=== PATIENT | male | born 1950 | race Caucasian/White ===

== ENCOUNTER 2018-04-13 16:05 | Inpatient (IN) ==
[2018-04-13 16:11] VITALS: BMI 20.3
[2018-04-13] MEDS ORDERED: ASPIRIN PO ONE (17:39)
--- NOTE | 2018-04-13 17:44 | DR.SOBA ---
HPI - Time Seen Time seen: 17:41 - Primary Care Physician Primary Care Physician: MAHAMED HAJI - Complaints Chief Complaint Doctors Comments: Patient states he has been having chest pain, SOB and back pain for the past two weeks getting progressively worst. States he has been having problems breathing and has been using his 's oxygen at home when he felt that he needed it. He has been using an inhaler at home and states he has been having problems breathing. He smokes 1/2 pack cigarettes daily but denies alcohol usage. States he has been having chest pain but denies nausea, vomiting, dysuria or hematuria. Chief Complaint:: PT HAS BEEN SHORT OF BREATH AND HOT. HE STATED THAT THIS HAS BEEN GOING ON FOR 2 WEEKS. HAVING DISCOMFORT IN CHEST AND BACK. - Reviewed Nurses Notes Reviewed: Yes - Source History Provided: Patient - Mode of Arrival Mode of Arrival: Wheelchair - Timing Onset of Chief Complaint: 03/30/18 - Duration Duration: Weeks - Context Onset:: At Rest History of:: None Currently on:: Inhaled Bronchodilators Prehospital Care:: O2, Inhaled B2 - Modifying Factors Worsens:: Nothing Improves:: Nothing - Associated Signs and Symptoms Associated Signs and Symptoms: Wheeze, Cough, Chest Pain - If Chest Pain Quality: Sharp Location: Substernal - If Cough Cough: Nonproductive PMH - PMH Past Medical History: Yes Past Medical History: Anemia, COPD, CVA, Dyslipidemia, GERD, Hypertension, [place] Past Surgical History: Yes Surgical History: Angioplasty/Stents - Family History History of Family Medical Conditions: Yes Family Medical History: Cancer, Coronary Artery Disease - Social History Does patient currently use any type of tobacco product: Yes Have you used tobacco products in the last 12 months: Yes Type of Tobacco Use: Cigarettes Does any household member use tobacco: No Alcohol Use: Rarely Do you use any recreational Drugs:: No Lives With: Family Lives Where: Home - infectious screening In the last 2 months have you had wt loss of >10#?: NO Have you had fever, night sweats or hemotysis?: No Have you traveled outside the country in the last 6 months?: No Isolation: Standard ROS - Review of Systems Constitutional: No Symptoms Reported Eyes: No Symptoms Reported. negative: See HPI, Eye Pain, Blurred Vision, Tearing, Discharge, Photophobia, Diplopia, Other ENTM: No Symptoms Reported Respiratoy: No Symptoms Reported, Non-Productive Cough, Short of Breath, Wheezing Cardiovascular: No Symptoms Reported, Chest Pain Gastrointestinal/Abdominal: No Symptoms Reported. negative: See HPI, Abdominal Pain, Constipation, Diarrhea, Nausea, Vomiting, Food Intolerance, Other Genitourinary: No Symptoms Reported. negative: See HPI, Discharge, Dysuria, Frequency, Hematuria, Pain, Bleeding, Other Neurological: No Symptoms Reported Musculoskeletal: No Symptoms Reported. negative: See HPI, Back Pain, Gout, Joint Pain, Joint Swelling, Muscle Pain, Muscle Stiffness, Neck Pain, Right, Left, Neck, Chest wall, Rib(s), Back, Shoulder, Arm, Elbow, Forearm, Wrist, Hand , Pelvis, Hip, Leg, Knee, Ankle, Foot, Other Integumentary: No Symptoms Reported Hematologic/Lymphatic: No Symptoms Reported. negative: See HPI, Anemia, Blood Clots, Easy Bleeding, Easy Bruising, Swollen Glands, Lymphadenopathy, Other Endocrine: No Symptoms Reported Psychiatric: No Symptoms Reported. negative: See HPI, Anxiety, Depression, Hallucinations, Excessive crying, Suicidal, Other PE - General Limitations: No Limitations General Appearance: Alert, In No Apparent Distress, Anxious - Head Head Exam: Normal Inspection, Atraumatic, Normocephalic - Eyes Eye exam: Normal Appearance, PERRL, EOMI. negative: Scleral Icterus, Conjunctival Injection, Nystagmus, Miosis, Mydrasis, Periorbital Swelling, Periorbital Tenderness, Other - ENT ENT Exam: Normal Exam, Normal Oropharynx, Normal External Ear Exam, Mucous Membranes Moist, TM's Normal Bilaterally - Neck Neck Exam: Normal Inspection, Full ROM, Trachea Midline - Chest Chest Inspection: Normal Inspection, Symmetric Chest Wall Rise - Respiratory Respiratory Exam: Normal Lung Sounds Bilat, Prolonged Expiratory Phase Respiratory Exam: Bilateral Clear to Auscultation - Cardiovascular Cardiovascular Exam: Regular Rate, Normal Rhythm, Normal Heart Sounds - Abdominal Exam Abdominal Exam: Normal Inspection, Normal Bowel Sounds, Soft Abdominal Tenderness: negative: RUQ, RLQ, LUQ, LLQ, Epigastrium, Suprapubic, Diffuse, Mild, Moderate, Severe, Other - Extremities Extremities Exam: Normal Inspection, Full ROM, Normal Capillary Refill. negative: Tenderness, Edema, Joint Swelling, Calf Tenderness, Other - Back Back Exam: Normal Inspection, Full ROM. negative: Tenderness, (R) CVA Tenderness, (L) CVA Tenderness, Muscle Spasm, Paraspinal Tenderness, Vertebral Tenderness, Rashes, (R) Sciatic Notch Tenderness, (L) Sciatic Notch Tendern, (R ) Straight Leg Raise, (L) Straight Leg Raise, Other - Neurologic Neurological Exam: Alert, Oriented X3, CN II-XII Intact, Reflexes Normal. negative: Normal Gait (gait not tested) - Psychiatric Psychiatric Exam: Normal Affect, Normal Mood - Skin Skin Exam: Warm, Dry, Intact, Normal Color. negative: Rash, Cyanosis, Diaphoresis, Erythema, Pallor, Mottled, Other - Vital Signs Vitals: Temperature 98.0 F Pulse Rate [Apical] 100 Pulse Rate 107 Respiratory Rate 17 Blood Pressure [Left Arm] 168/80 Blood Pressure [Right Arm] 105/55 Blood Pressure 151/67 O2 Sat by Pulse Oximetry 98 ROR - Labs Reviewed Laboratory Results Reviewed?: Yes (All labs and x-ray results reviewed and discussed with patient) Result Diagrams: 04/13/18 17:57 04/13/18 17:57 - XRAY XRAY Interpreted by: Radiologist (CTA: COPD with bilateral pleural effusions, larger on right side. No evidence of pulmonary embolus or thoracic aortic aneurysm.) XRAY Findings: CXR: Interval developement of cardiomegaly and CHF with interstitial edema - EKG Rate: 81 Maxwell: LAD Rhythm: NSR Block: None Hypertrophy: LAE ST: Nonsp - Labs Reviewed Laboratory: WBC 6.3 X10^3/uL (3.6-10.0) 04/13/18 17:57 RBC 4.27 X10^6/uL (4.7-6.0) L 04/13/18 17:57 Hgb 14.0 g/dL (13.5-18.0) 04/13/18 17:57 Hct 39.4 % (42.0-54.0) L 04/13/18 17:57 MCV 92.2 fL (80.0-100.0) 04/13/18 17:57 MCH 32.7 pg (27.0-34.0) 04/13/18 17:57 MCHC 35.5 g/dL (33.0-35.0) H 04/13/18 17:57 RDW 14.7 % (11.6-16.5) 04/13/18 17:57 Plt Count 146 X10^3/uL (150.0-450.0) L 04/13/18 17:57 MPV 8.5 fL (7.4-11.0) 04/13/18 17:57 Neut % (Auto) 74.1 % (42.0-75.0) 04/13/18 17:57 Lymph % (Auto) 14.1 % (21.0-51.0) L 04/13/18 17:57 Granite % (Auto) 10.3 % (0.0-13.0) 04/13/18 17:57 Eos % (Auto) 0.4 % (0.9-2.9) L 04/13/18 17:57 Baso % (Auto) 1.1 % (0.2-1.0) H 04/13/18 17:57 Neut # (Auto) 4.7 x10^3/uL (2.2-4.8) 04/13/18 17:57 Lymph # (Auto) 0.9 X10^3/uL (1.3-2.9) L 04/13/18 17:57 Granite # (Auto) 0.6 x10^3/uL (0.3-0.8) 04/13/18 17:57 Eos # (Auto) 0.0 x10^3/uL (0.0-0.2) 04/13/18 17:57 Baso # (Auto) 0.1 X10^3/uL (0.0-0.1) 04/13/18 17:57 Absolute Nucleated RBC 0.0 /100WBC 04/13/18 17:57 INR Target Range - 04/13/18 17:57 INR 1.08 (0.8-1.3) 04/13/18 17:57 APTT 49.0 SECONDS (22.9-36.5) H 04/13/18 17:57 PTT Comment - 04/13/18 17:57 D-Dimer 2450 ng/mL (0-400) H* 04/13/18 17:57 Sodium 137 mmol/L (136-145) 04/13/18 17:57 Corrected Sodium TNP 04/13/18 17:57 Potassium 5.5 mmol/L (3.5-5.1) H 04/13/18 17:57 Chloride 102 mmol/L (98-107) 04/13/18 17:57 Carbon Dioxide 25.7 mmol/L (21-32) 04/13/18 17:57 BUN 17 mg/dL (7-18) 04/13/18 17:57 Creatinine 1.27 mg/dL (0.70-1.30) 04/13/18 17:57 Est GFR (MDRD) Af Amer > 60 (>60) 04/13/18 17:57 Est GFR (MDRD) Non-Af 60 (>60) 04/13/18 17:57 Glucose 102 mg/dL (65-99) H 04/13/18 17:57 Calcium 9.6 mg/dL (8.5-10.1) 04/13/18 17:57 Corrected Calcium 10.2 mg/dL (8.5-10.1) H 04/13/18 17:57 Magnesium 1.5 mg/dL (1.7-2.9) L 04/13/18 17:57 Total Bilirubin 1.20 mg/dL (0.2-1.0) H 04/13/18 17:57 AST 26 Units/L (15-37) 04/13/18 17:57 ALT 22 Units/L (12-78) 04/13/18 17:57 Alkaline Phosphatase 153 Units/L (46-116) H 04/13/18 17:57 Creatine Kinase 81 Units/L (39-308) 04/13/18 23:59 CK-MB (CK-2) 2.0 ng/mL (0-4.0) 04/13/18 23:59 CK/CKMB % Calc 2.5 % (<4) 04/13/18 23:59 Troponin I 0.65 ng/mL (0-1.5) 04/13/18 23:59 B-Natriuretic Peptide 4000 pg/mL (0-79) H* 04/13/18 17:57 Total Protein 7.7 g/dL (6.4-8.2) 04/13/18 17:57 Albumin 3.2 g/dL (3.4-5.0) L 04/13/18 17:57 Globulin 4.5 g/dL (2.5-4.5) 04/13/18 17:57 Albumin/Globulin Ratio 0.7 Ratio (1.1-2.1) L 04/13/18 17:57 - Diagnosis Discharge Problem: Chest pain, rule out acute myocardial infarction, Hyperkalemia, Bilateral pleural effusion, Cardiomegaly Congestive heart failure Qualifiers: Heart failure type: unspecified - Discharge Plan Disposition: ADMITTED INPATIENT Condition: Stable
[2018-04-13 18:04] LABS: BASOPHILS # (AUTO) 0.1 X10^3/uL (0.0-0.1); BASOPHILS % (AUTO) 1.1 % (0.2-1.0); EOSINOPHILS % (AUTO) 0.4 % (0.9-2.9); HEMATOCRIT 39.4 % (42.0-54.0); LYMPHOCYTES # (AUTO) 0.9 X10^3/uL (1.3-2.9); LYMPHOCYTES % (AUTO) 14.1 % (21.0-51.0); MEAN CORPUSCULAR HEMOGLOBIN 32.7 pg (27.0-34.0); MEAN CORPUSCULAR HGB CONC 35.5 g/dL (33.0-35.0); MEAN CORPUSCULAR VOLUME 92.2 fL (80.0-100.0); MEAN PLATELET VOLUME 8.5 fL (7.4-11.0); MONOCYTES # (AUTO) 0.6 x10^3/uL (0.3-0.8); MONOCYTES % (AUTO) 10.3 % (0.0-13.0); NEUTROPHILS # (AUTO) 4.7 x10^3/uL (2.2-4.8); NEUTROPHILS % (AUTO) 74.1 % (42.0-75.0); PLATELET COUNT 146 X10^3/uL (150.0-450.0); RED BLOOD COUNT 4.27 X10^6/uL (4.7-6.0); RED CELL DISTRIBUTION WIDTH 14.7 % (11.6-16.5); WHITE BLOOD COUNT 6.3 X10^3/uL (3.6-10.0)
--- NOTE | 2018-04-13 18:20 | RAD ---
Examination: AP chest History: SOB Comparison 08/19/2016 Findings: The heart is enlarged, increased since prior study. Sternal wires and stable pacemaker judith ce. Interval increase in pulmonary congestion, interstitial infiltrates and small bilateral pleural e ffusions. Impression: Interval development of cardiomegaly and CHF with interstitial edema and small pleural ef fusions. Reported By:
[2018-04-13 18:26] LABS: BLOOD UREA NITROGEN 17 mg/dL (7-18); CALCIUM 9.6 mg/dL (8.5-10.1); CARBON DIOXIDE 25.7 mmol/L (21-32); CHLORIDE 102 mmol/L (98-107); CREATININE 1.27 mg/dL (0.70-1.30); SODIUM 137 mmol/L (136-145); TROPONIN I 0.68 ng/mL (0-1.5); eGFR NON BLACK RACES 60 (>60)
[2018-04-13 18:27] LABS: ALANINE AMINOTRANSFERASE 22 Units/L (12-78); ALBUMIN 3.2 g/dL (3.4-5.0); ALKALINE PHOSPHATASE 153 Units/L (46-116); ASPARTATE AMINO TRANSFERASE 26 Units/L (15-37); CKMB % 2.9 % (<4); COR CA(FOR HYPOALB) 10.2 mg/dL (8.5-10.1); CREATINE KINASE 82 Units/L (39-308); CREATINE KINASE MB 2.4 ng/mL (0-4.0); MAGNESIUM 1.5 mg/dL (1.7-2.9); TOTAL PROTEIN 7.7 g/dL (6.4-8.2)
[2018-04-13] MEDS ORDERED: LASIX IVP STA (18:40)
[2018-04-13] MEDS ORDERED: ASPIRIN ONE (18:45)
[2018-04-13] MEDS ORDERED: LASIX ONE (18:48)
[2018-04-13] MEDS ORDERED: NS 100 ML IV 100 ML IV ONE ×2 (18:50→22:45)
--- NOTE | 2018-04-13 19:27 | CT ---
HISTORY: Chest pain, shortness of breath, D-dimer of 11/23/1951 Study: CTA chest, PE protocol Comparison: 08/19/2016. Technique: Multiple axial images of the chest were obtained from the thoracic inlet to the upper abdo men during the administration of IV contrast. In addition to standard multi planar reconstructions, M IP reconstructions were performed in axial, coronal and sagittal planes. Findings: The mediastinum does not demonstrate significant pathological lymphadenopathy. There is no pericardi al effusion observed. The thoracic aorta is normal in its contour without evidence for aneurysmal di latation. There are changes of CABG. The left ventricle is enlarged. The central pulmonary arterial s ystem does not demonstrate central filling defects to suggest pulmonary emboli. Evaluation of the lung parenchyma again reveals COPD with centrilobular and paraseptal emphysema. The re are changes of mild cylindrical bronchiectasis. There are bilateral pleural effusions, larger on t he right side. Some very mild compressive atelectasis is seen in the lung bases.. No pulmonary nodul e or mass can be identified. The bony thorax is unremarkable in its appearance. The liver and adren al glands are normal. Multiple calcified granulomas are present involving the spleen.. IMPRESSION: COPD with bilateral pleural effusions, larger on the right side. Some very mild compressive atelectas is is seen in the lung bases. No evidence of pulmonary embolus or thoracic aortic aneurysm. Reported By:
[2018-04-13] MEDS: DUONEB 0.5 MG/3 MG NEB SCH (21:15)
[2018-04-13] MEDS ORDERED: LEVAQUIN PREMIX IV 500 MG 500 MG/100 ML BAG IV SCH (22:00)
[2018-04-14 00:37] LABS: CKMB % 2.5 % (<4); TROPONIN I 0.65 ng/mL (0-1.5)
[2018-04-14] MEDS: DUONEB 0.5 MG/3 MG NEB SCH ×5 (00:43→17:10)
[2018-04-14 06:02] LABS: CHOL/HDL RATIO 3.9 (0.0-5.0); CKMB % 2.8 % (<4); CREATINE KINASE MB 2.3 ng/mL (0-4.0); TROPONIN I 0.76 ng/mL (0-1.5)
[2018-04-14 06:21] LABS: BASOPHILS # (AUTO) 0.1 X10^3/uL (0.0-0.1); BASOPHILS % (AUTO) 1.4 % (0.2-1.0); EOSINOPHILS # (AUTO) 0.1 x10^3/uL (0.0-0.2); EOSINOPHILS % (AUTO) 1.4 % (0.9-2.9); HEMATOCRIT 36.2 % (42.0-54.0); LYMPHOCYTES # (AUTO) 1.3 X10^3/uL (1.3-2.9); LYMPHOCYTES % (AUTO) 26.6 % (21.0-51.0); MEAN CORPUSCULAR HEMOGLOBIN 32.9 pg (27.0-34.0); MEAN CORPUSCULAR HGB CONC 35.9 g/dL (33.0-35.0); MEAN CORPUSCULAR VOLUME 91.6 fL (80.0-100.0); MEAN PLATELET VOLUME 8.8 fL (7.4-11.0); MONOCYTES # (AUTO) 0.8 x10^3/uL (0.3-0.8); MONOCYTES % (AUTO) 16.2 % (0.0-13.0); NEUTROPHILS # (AUTO) 2.7 x10^3/uL (2.2-4.8); NEUTROPHILS % (AUTO) 54.4 % (42.0-75.0); PLATELET COUNT 133 X10^3/uL (150.0-450.0); RED BLOOD COUNT 3.95 X10^6/uL (4.7-6.0); RED CELL DISTRIBUTION WIDTH 14.8 % (11.6-16.5)
[2018-04-14 06:39] LABS: ALANINE AMINOTRANSFERASE 20 Units/L (12-78); ALBUMIN 2.8 g/dL (3.4-5.0); ALKALINE PHOSPHATASE 130 Units/L (46-116); ASPARTATE AMINO TRANSFERASE 26 Units/L (15-37); BLOOD UREA NITROGEN 20 mg/dL (7-18); CALCIUM 8.8 mg/dL (8.5-10.1); CARBON DIOXIDE 25.7 mmol/L (21-32); CHLORIDE 102 mmol/L (98-107); COR CA(FOR HYPOALB) 9.8 mg/dL (8.5-10.1); CREATININE 1.22 mg/dL (0.70-1.30); SODIUM 137 mmol/L (136-145); TOTAL PROTEIN 6.8 g/dL (6.4-8.2); eGFR NON BLACK RACES > 60 (>60)
[2018-04-14] MEDS: PROTONIX INJ 40 MG VIAL IVP SCH (08:44)
[2018-04-14] MEDS: MAGNESIUM SULFATE 1 GRAM/100 mL PREMIX 1 GM/100 ML BAG IV PRN ×4 (08:44→12:30)
[2018-04-14] MEDS: SOLU-Medrol 40 MG VIAL IVP SCH ×2 (08:45→16:45)
[2018-04-14] MEDS: LOVENOX INJ 40 MG SYR SC SCH (08:45)
--- NOTE | 2018-04-14 09:25 | DR.H&P ---
H&P - History & Physical for Day of: H&P Date: 04/13/18 - Chief Complaint Chief Complaint: SOB, CHEST PAIN - History of Present Illness History of Present Illness: 67WM ER ADMISSION AFTER PRESENTING WITH CO CHEST PAIN AND INCREASE SOB WORSE OVER LAST 2 WEEKS. PT STATES HE HAS HXOF CAD, WITH BYPASS IN 2006. PT HAS BEEN SEEN BY [facility],BUT IT "OVER 2 YEARS AGO AT LEAST" PT IS DAILY SMOKER, HX OF HTN AND HYPERLIPIDEMIA. 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 PT ADMITTED FOR ACUTE CHEST PAIN, RESP DISTRESS - Past Medical History Past Medical History: Anemia, COPD, CVA, Dyslipidemia, GERD, Hypertension, [place] - Past Surgical History Surgical History: Angioplasty/Stents, CABG/Valve Surgery - Family History Family Medical History: Cancer, Coronary Artery Disease - Social History Does patient currently use any type of tobacco product: Yes Have you used tobacco products in the last 12 months: Yes Type of Tobacco Use: Cigarettes How many years tobacco product used: 18 Does any household member use tobacco: No Alcohol Use: Rarely Drug Use: None - Medications Home Medications: No Known Drug Allergies Allergy (Verified 04/13/18 20:00) CONTINUE taking the following medications aspirin 325 mg PO QDAY 04/14/18 [History] atorvastatin 1 mg PO HS 04/14/18 [History] carvedilol 6.25 mg PO BID 04/14/18 [History] clopidogrel 1 mg PO DAILY 04/14/18 [History] lisinopril 2.5 mg PO QDAY 04/14/18 [History] - Review of Systems Constitutional: Weakness Eyes: No Symptoms Reported ENT: No Symptoms Reported Respiratory: Shortness of Breath, SOB with Excertion Cardiovascular: Chest Pain. denies: Edema Gastrointestinal: Nausea Genitourinary: No Symptoms Reported Musculoskeletal: No Symptoms Reported Skin: No Symptoms Reported Neurological: Weakness - Physical Exam Vital Signs: Temperature 98.3 F Pulse Rate [Apical] 72 Pulse Rate 77 Respiratory Rate 22 Blood Pressure [Left Arm] 137/61 Blood Pressure [Right Arm] 105/55 Blood Pressure 151/67 O2 Sat by Pulse Oximetry 97 Oriented: Normal Eyes: Normal Ear: Normal Nose: Normal Throat: Normal Respiratory: Diminished Throughout Cardiovascular: Normal. negative: Edema : Normal Auscultation: Bowel Sounds: Normal Palpation: Normal Tenderness: Epigastric Skin: Decreased Turgur Musculoskeletal: Normal Psychiatric: Anxiety Affect: Anxious Speech Pattern: Clear, Appropriate - Assessment/Plan (1) Chest pain Status: Acute Plan: ADMIT, ICU SERILA CE AND EKG, CTA OF CHEST ON ADMISSION FROM ER. CONTINUE CARDIAC MONITORING, SUPPLEMENTAL O2. STRITCT I & OS, LOVENOX. VERIFY HOME MEDS, BP CONTROL. ASPIRIN STATIN THERAPY, RESP CONSULT. IV LASIX GIVEN ONE DOSE IN ER, WILL REPEAT AM CXR (2) Generalized weakness Status: Acute (3) COPD (chronic obstructive pulmonary disease) Qualifiers: COPD type: unspecified COPD Qualified Code(s): J44.9 - Chronic obstructive pulmonary disease, unspecified Status: Acute (4) Congestive heart failure Qualifiers: Heart failure type: unspecified Status: Acute - Allergies Allergies/Adverse Reactions: Allergies Allergy/AdvReac Type Severity Reaction Status Date / Time No Known Drug Allergies Allergy Verified 04/13/18 20:00
--- NOTE | 2018-04-14 09:30 | PCM.PROG ---
Progress Note - Progress Note for Day of Date of Exam: 04/14/18 - Subjective Subjective: 67 WM ER ADMISSION ON 04/13 WITH CP, SOB R/O AMI. CTA CHEST REVEALED BILATER EFFUSIONS. PT DENIES CP ON ASSESSMENT THIS AM CO CONTINUED SOB. RESUMED BB, PLAVIS, ASPIRIN AND STATIN THERAPY, LASIX IV BID. STRICT I & OS, TROPONIN INCREASED FROM 0.65 TO 0.76, ORDERED REPEAT 4TH SET CE. DISCUSSED POSSIBLE NEED FOR CARDIAC CATH OR CARE AT TERTIARY CARE FACILITY. PT AGREED WITH PLAN OF CARE - Past Medical Family Social History Past Med/Fam/Surg Hx: No changes since H&P Allergies: Allergies No Known Drug Allergies Allergy (Verified 04/13/18 20:00) - Review of Systems ROS: No change since H&P - Vital Signs and I&O's Vital Signs: Temperature 98.3 F Pulse Rate [Apical] 72 Pulse Rate 77 Respiratory Rate 22 Blood Pressure [Left Arm] 137/61 Blood Pressure [Right Arm] 105/55 Blood Pressure 151/67 O2 Sat by Pulse Oximetry 97 Intake and Output: Intake & Output 04/11/18 04/12/18 04/13/18 04/14/18 11:59 11:59 11:59 11:59 Intake Total 555 / 555 Output Total 300 / 300 Balance 255 / 255 - Physical Exam Oriented: Normal Eyes: Normal Ear: Normal Nose: Normal Throat: Normal Respiratory: Diminished Cardiovascular: Normal. negative: Edema : Normal Auscultation: Bowel Sounds: Normal Tenderness: Epigastric Skin: Decreased Turgur Musculoskeletal: Normal Psychiatric: Anxiety Affect: Anxious Speech Pattern: Clear, Appropriate - Laboratory and Diagnostics Result Diagrams: 04/14/18 05:10 04/14/18 05:10 Labs: Laboratory WBC 5.0 X10^3/uL (3.6-10.0) 04/14/18 05:10 RBC 3.95 X10^6/uL (4.7-6.0) L 04/14/18 05:10 Hgb 13.0 g/dL (13.5-18.0) L 04/14/18 05:10 Hct 36.2 % (42.0-54.0) L 04/14/18 05:10 MCV 91.6 fL (80.0-100.0) 04/14/18 05:10 MCH 32.9 pg (27.0-34.0) 04/14/18 05:10 MCHC 35.9 g/dL (33.0-35.0) H 04/14/18 05:10 RDW 14.8 % (11.6-16.5) 04/14/18 05:10 Plt Count 133 X10^3/uL (150.0-450.0) L 04/14/18 05:10 MPV 8.8 fL (7.4-11.0) 04/14/18 05:10 Neut % (Auto) 54.4 % (42.0-75.0) 04/14/18 05:10 Lymph % (Auto) 26.6 % (21.0-51.0) 04/14/18 05:10 [place] % (Auto) 16.2 % (0.0-13.0) H 04/14/18 05:10 Eos % (Auto) 1.4 % (0.9-2.9) 04/14/18 05:10 Baso % (Auto) 1.4 % (0.2-1.0) H 04/14/18 05:10 Neut # (Auto) 2.7 x10^3/uL (2.2-4.8) 04/14/18 05:10 Lymph # (Auto) 1.3 X10^3/uL (1.3-2.9) 04/14/18 05:10 [place]uming # (Auto) 0.8 x10^3/uL (0.3-0.8) 04/14/18 05:10 Eos # (Auto) 0.1 x10^3/uL (0.0-0.2) 04/14/18 05:10 Baso # (Auto) 0.1 X10^3/uL (0.0-0.1) 04/14/18 05:10 Absolute Nucleated RBC 0.1 /100WBC 04/14/18 05:10 INR Target Range - 04/13/18 17:57 INR 1.08 (0.8-1.3) 04/13/18 17:57 APTT 49.0 SECONDS (22.9-36.5) H 04/13/18 17:57 PTT Comment - 04/13/18 17:57 D-Dimer 2450 ng/mL (0-400) H* 04/13/18 17:57 Sodium 137 mmol/L (136-145) 04/14/18 05:10 Corrected Sodium TNP 04/14/18 05:10 Potassium 3.9 mmol/L (3.5-5.1) 04/14/18 05:10 Chloride 102 mmol/L (98-107) 04/14/18 05:10 Carbon Dioxide 25.7 mmol/L (21-32) 04/14/18 05:10 BUN 20 mg/dL (7-18) H 04/14/18 05:10 Creatinine 1.22 mg/dL (0.70-1.30) 04/14/18 05:10 Est GFR (MDRD) Af Amer > 60 (>60) 04/14/18 05:10 Est GFR (MDRD) Non-Af > 60 (>60) 04/14/18 05:10 Glucose 92 mg/dL (65-99) 04/14/18 05:10 Calcium 8.8 mg/dL (8.5-10.1) 04/14/18 05:10 Corrected Calcium 9.8 mg/dL (8.5-10.1) 04/14/18 05:10 Magnesium 1.4 mg/dL (1.7-2.9) L 04/14/18 05:50 Total Bilirubin 0.90 mg/dL (0.2-1.0) 04/14/18 05:10 AST 26 Units/L (15-37) 04/14/18 05:10 ALT 20 Units/L (12-78) 04/14/18 05:10 Alkaline Phosphatase 130 Units/L (46-116) H 04/14/18 05:10 Creatine Kinase 82 Units/L (39-308) 04/14/18 05:10 CK-MB (CK-2) 2.3 ng/mL (0-4.0) 04/14/18 05:10 CK/CKMB % Calc 2.8 % (<4) 04/14/18 05:10 Troponin I 0.76 ng/mL (0-1.5) 04/14/18 05:10 B-Natriuretic Peptide 4000 pg/mL (0-79) H* 04/13/18 17:57 Total Protein 6.8 g/dL (6.4-8.2) 04/14/18 05:10 Albumin 2.8 g/dL (3.4-5.0) L 04/14/18 05:10 Globulin 4.0 g/dL (2.5-4.5) 04/14/18 05:10 Albumin/Globulin Ratio 0.7 Ratio (1.1-2.1) L 04/14/18 05:10 Triglycerides 71 mg/dL (0-150) 04/14/18 05:10 Cholesterol 157 mg/dL (0-200) 04/14/18 05:10 LDL Cholesterol, Calc 103 mg/dL (0-100) H 04/14/18 05:10 HDL Cholesterol 40 mg/dL (40-60) 04/14/18 05:10 Cholesterol/HDL Ratio 3.9 (0.0-5.0) 04/14/18 05:10 - Plan (1) Chest pain Status: Acute Plan: SERIAL CE AND EKG, CTA OF CHEST ON ADMISSION FROM ER. CONTINUE CARDIAC MONITORING, SUPPLEMENTAL O2. STRITCT I & OS, LOVENOX. VERIFY HOME MEDS, BP CONTROL. ASPIRIN STATIN THERAPY, RESP CONSULT, COREG. IV LASIX (2) Generalized weakness Status: Acute (3) COPD (chronic obstructive pulmonary disease) Status: Acute Qualifiers: COPD type: unspecified COPD Qualified Code(s): J44.9 - Chronic obstructive pulmonary disease, unspecified (4) Congestive heart failure Status: Acute Qualifiers: Heart failure type: unspecified
[2018-04-14] MEDS: ZESTRIL TAB 5 MG PO SCH (09:51)
[2018-04-14] MEDS: ASPIRIN PO SCH (09:51)
[2018-04-14] MEDS: LASIX IVP SCH ×2 (09:52→20:39)
[2018-04-14] MEDS: COREG TAB 6.25 MG PO SCH ×2 (09:52→20:38)
[2018-04-14 12:19] LABS: CKMB % 2.1 % (<4); TROPONIN I 0.6 ng/mL (0-1.5)
[2018-04-14] MEDS ORDERED: PROVENTIL NEB TX 0.083% 2.5MG/ 3ML NEB PRN (12:26)
--- NOTE | 2018-04-14 15:15 | RAD ---
Examination: Portable AP chest History: CHF SOB Comparison 04/13/2018 Findings: Persistent cardiac enlargement with postsurgical changes. Cardiac pacing device again noted . Bilateral pleural effusions are present. Interstitial disease is again noted, probably a combinatio n of chronic peribronchial fibrosis, CT documented bronchiectasis, and mild edema. No consolidation o r pneumothorax. Impression: Slight interval improvement in perivascular edema with residual cardiac enlargement, and small pleural effusions. Reported By:
[2018-04-14 20:37] LABS: CKMB % 1.7 % (<4); CREATINE KINASE MB 1.5 ng/mL (0-4.0); TROPONIN I 0.4 ng/mL (0-1.5)
[2018-04-14] MEDS: NS 1000 ML 1,000 ML IV SCH (20:39)
[2018-04-14] MEDS: BROVANA IN SCH (20:47)
[2018-04-14] MEDS: PULMICORT NEB TX 0.5 MG NEB SCH (20:47)
[2018-04-14] MEDS ORDERED: LEVAQUIN PREMIX IV 250 MG 250 MG/50 ML BAG IV SCH (21:00)
[2018-04-14] MEDS ORDERED: LIPITOR TAB 40 MG PO SCH ×2 (21:00)
[2018-04-14] MEDS ORDERED: LEVAQUIN PREMIX IV 500 MG 500 MG/100 ML BAG IV SCH (21:00)
[2018-04-15] MEDS: SOLU-Medrol 40 MG VIAL IVP SCH (01:00)
[2018-04-15] MEDS: DUONEB 0.5 MG/3 MG NEB SCH ×3 (01:31→12:25)
[2018-04-15 05:57] LABS: BASOPHILS % (AUTO) 0.1 % (0.2-1.0); HEMATOCRIT 36.4 % (42.0-54.0); HEMOGLOBIN 13.2 g/dL (13.5-18.0); LYMPHOCYTES # (AUTO) 0.5 X10^3/uL (1.3-2.9); MEAN CORPUSCULAR HEMOGLOBIN 32.8 pg (27.0-34.0); MEAN CORPUSCULAR HGB CONC 36.3 g/dL (33.0-35.0); MEAN CORPUSCULAR VOLUME 90.4 fL (80.0-100.0); MEAN PLATELET VOLUME 8.8 fL (7.4-11.0); MONOCYTES # (AUTO) 0.1 x10^3/uL (0.3-0.8); MONOCYTES % (AUTO) 2.1 % (0.0-13.0); NEUTROPHILS % (AUTO) 90.8 % (42.0-75.0); PLATELET COUNT 147 X10^3/uL (150.0-450.0); RED BLOOD COUNT 4.03 X10^6/uL (4.7-6.0); RED CELL DISTRIBUTION WIDTH 14.8 % (11.6-16.5); WHITE BLOOD COUNT 6.7 X10^3/uL (3.6-10.0)
[2018-04-15 06:09] LABS: BAND NEUTROPHILS % 2 % (0-10); PLATELET MORPHOLOGY COMMENT NORMAL (NORMAL)
[2018-04-15 06:19] LABS: ALBUMIN 2.9 g/dL (3.4-5.0); CALCIUM 8.7 mg/dL (8.5-10.1); CARBON DIOXIDE 25.9 mmol/L (21-32); COR CA(FOR HYPOALB) 9.6 mg/dL (8.5-10.1); CREATININE 1.51 mg/dL (0.70-1.30); TOTAL PROTEIN 7.1 g/dL (6.4-8.2)
--- NOTE | 2018-04-15 08:12 | RAD ---
HISTORY: Shortness of breath Study: Chest AP portable Comparison: 04/14/2018, 03/23/1990 Findings: The patient is status post median sternotomy and CABG. There is a pacemaker present on the left parti ally obscuring the left upper lobe. The heart is within normal limits in size. The cyndi are normal. T he lungs are hyperinflated. No infiltrates are identified. There is small right pleural effusion pres ent. The bony thorax is unremarkable. IMPRESSION: Lungs hyperinflated but clear, consistent with COPD in the appropriate clinical setting Small right pleural effusion Reported By:
[2018-04-15] MEDS: PROTONIX INJ 40 MG VIAL IVP SCH (08:40)
[2018-04-15] MEDS: LASIX IVP SCH (08:40)
[2018-04-15] MEDS: ZESTRIL TAB 5 MG PO SCH (08:41)
[2018-04-15] MEDS: ASPIRIN PO SCH (08:41)
[2018-04-15] MEDS: COREG TAB 6.25 MG PO SCH (08:43)
[2018-04-15] MEDS ORDERED: PLAVIX PO SCH ×2 (09:00)
[2018-04-15] MEDS ORDERED: SOLU-Medrol 40 MG VIAL IVP SCH (09:00)
[2018-04-15] MEDS: LOVENOX INJ 40 MG SYR SC SCH (09:05)
[2018-04-15] MEDS: NS 1000 ML 1,000 ML IV SCH (09:06)
[2018-04-15] MEDS: BROVANA IN SCH (09:25)
[2018-04-15 11:56] VITALS: BP 119/38
[2018-04-15] MEDS: PULMICORT NEB TX 0.5 MG NEB SCH (12:25)
[2018-04-15] MEDS ORDERED: LIPITOR TAB 40 MG PO SCH (21:00)
[2018-04-16] MEDS ORDERED: PLAVIX PO SCH (09:00)
== END 2018-04-15 15:55 | disposition home or self-care (01) | DRG 313 ==
LOC: ER 16:07 → ICU 20:36
PROVIDERS: ADMIT Internal Medicine; ATTEND Internal Medicine
DX: E87.5 Hyperkalemia; Z66 Do not resuscitate; J90 Pleural effusion, not elsewhere classified; E78.2 Mixed hyperlipidemia; R06.03 Acute respiratory distress; M54.89 Other dorsalgia; R94.31 Abnormal electrocardiogram [ECG] [EKG]; R06.02 Shortness of breath; R07.89 Other chest pain; R79.1 Abnormal coagulation profile; I51.7 Cardiomegaly; Z72.0 Tobacco use; I50.9 Heart failure, unspecified; J44.1 Chronic obstructive pulmonary disease with (acute) exacerbation; R53.1 Weakness
CPT/HCPCS: 36415; 71010; 71045; 71275; 80053; 80061; 82550; 82553; 83735; 83880; 84484; 85025; 85378; 85610; 85730; 93005; 93010; 94640; 94760; 96365; 96374; 99221; 99231; 99284; 99285; A4216; A4222; C9113; J1650; J1940; J1956; J2920; J3475; J7030; J7050; J7613; J7620; J7626

== ENCOUNTER 2018-07-01 13:14 | Observation (INO) ==
--- NOTE | 2018-07-01 13:30 | DR.AMS ---
HPI Time Seen Time Seen by Provider: 07/01/18 13:20 Complaint Cheif Complaint Doctors Comments: Patient presented to the ED with altered mental status of acute onset. PMH PMH Past Medical History: Anemia, COPD, CVA, Dyslipidemia, GERD, Hypertension and IA Past Surgical History: Yes Surgical History: Angioplasty/Stents and CABG/Valve Surgery Family History Family Medical History: Cancer and Coronary Artery Disease Social History Do you use any recreational Drugs:: No PE Vitals Vital Signs: Temp Pulse Pulse Resp BP BP BP 07/01/18 22:00 65 24 145/63 07/01/18 21:00 65 22 147/63 07/01/18 20:00 97.7 F 61 24 88/54 07/01/18 19:00 78 78 24 105/65 105/65 07/01/18 18:43 72 20 115/63 07/01/18 17:45 61 29 H 84/50 07/01/18 17:30 68 29 H 90/55 07/01/18 17:15 61 24 92/54 07/01/18 17:00 77 20 107/65 07/01/18 16:33 79 20 90/53 07/01/18 15:51 89 20 108/55 07/01/18 15:47 100 H 25 H 105/57 07/01/18 15:30 73 26 H 154/66 07/01/18 15:15 67 18 156/72 07/01/18 15:12 69 07/01/18 15:00 71 22 162/75 07/01/18 14:45 82 20 179/80 07/01/18 14:30 112 H 20 156/73 07/01/18 14:00 60 22 144/67 07/01/18 13:14 98.2 F 78 17 165/72 06/02/18 18:15 93/55 93/55 06/02/18 13:15 161/70 Pulse Ox 07/01/18 22:00 99 07/01/18 21:00 100 07/01/18 20:00 100 07/01/18 19:00 95 07/01/18 18:43 100 07/01/18 17:45 93 L 07/01/18 17:30 96 07/01/18 17:15 95 07/01/18 17:00 97 07/01/18 16:33 96 07/01/18 15:51 07/01/18 15:47 100 07/01/18 15:30 97 07/01/18 15:15 100 07/01/18 15:12 95 07/01/18 15:00 95 07/01/18 14:45 96 07/01/18 14:30 95 07/01/18 14:00 97 07/01/18 13:14 96 06/02/18 18:15 06/02/18 13:15 General Limitations: No Limitations and Altered Mental Status General Appearance: Alert, In No Apparent Distress and Lethargic Head Head Exam: Normal Inspection, Atraumatic and Normocephalic Eyes Eye exam: Normal Appearance, PERRL and EOMI Pupils: Regular, Round: Bilateral ENT ENT Exam: Normal Exam, Normal Oropharynx and Normal External Ear Exam External Ear Exam: Normal External Inspection TM/Canal Exam: Bilateral: Normal Nose Exam: Normal Nose Exam and Sinus Tenderness Mouth Exam: Normal Inspection Throat Exam: Normal Inspection and Tonsillar Erythema Neck Neck Exam: Normal Inspection and Full ROM Chest Chest Inspection: Normal Inspection and Symmetric Chest Wall Rise Respiratory Respiratory Exam: Normal Lung Sounds Bilat and Accessory Muscle Use Respiratory Exam: Bilateral: Clear to Auscultation Cardiovascular Cardiovascular Exam: Regular Rate and Normal Rhythm Abdominal Exam Abdominal Exam: Normal Inspection, Normal Bowel Sounds and Soft Abdominal Tenderness: RUQ, RLQ and LUQ Extremities Extremities Exam: Normal Inspection and Full ROM Back Back Exam: Normal Inspection and Full ROM Neurological Neurological Exam: Alert, Oriented X3 and CN II-XII Intact Cranial Nerve Exam: EOM Function (II, III, IV, ): Normal Cerebellar Function: Finger to Nose: Normal Motor Strength - LUE: 4/5 Motor Strength - RUE: 4/5 Motor Strength - LLE: 4/5 Psychological Psychiatric Exam: Normal Affect and Normal Mood Expanded Psychiatric Exam: Poor Eye Contact Skin Skin Exam: Warm, Dry and Intact COURSE Reevaluation 1st: Improved Consultation Called: 16:30 Consultation Comments: Dr. Love agreed admit patient for further evaluation and treatment ROR Labs Reviewed Laboratory Results Reviewed?: Yes Result Diagrams: 07/01/18 13:42 07/01/18 13:42 Laboratory: WBC 5.5 X10^3/uL (3.6-10.0) 07/01/18 13:42 RBC 3.96 X10^6/uL (4.7-6.0) L 07/01/18 13:42 Hgb 13.3 g/dL (13.5-18.0) L 07/01/18 13:42 Hct 37.9 % (42.0-54.0) L 07/01/18 13:42 MCV 95.6 fL (80.0-100.0) 07/01/18 13:42 MCH 33.5 pg (27.0-34.0) 07/01/18 13:42 MCHC 35.0 g/dL (33.0-35.0) 07/01/18 13:42 RDW 15.4 % (11.6-16.5) 07/01/18 13:42 Plt Count 163 X10^3/uL (150.0-450.0) 07/01/18 13:42 MPV 8.8 fL (7.4-11.0) 07/01/18 13:42 Neut % (Auto) 60.4 % (42.0-75.0) 07/01/18 13:42 Lymph % (Auto) 22.0 % (21.0-51.0) 07/01/18 13:42 Mason % (Auto) 14.2 % (0.0-13.0) H 07/01/18 13:42 Eos % (Auto) 2.1 % (0.9-2.9) 07/01/18 13:42 Baso % (Auto) 1.3 % (0.2-1.0) H 07/01/18 13:42 Neut # (Auto) 3.3 x10^3/uL (2.2-4.8) 07/01/18 13:42 Lymph # (Auto) 1.2 X10^3/uL (1.3-2.9) L 07/01/18 13:42 Mason # (Auto) 0.8 x10^3/uL (0.3-0.8) 07/01/18 13:42 Eos # (Auto) 0.1 x10^3/uL (0.0-0.2) 07/01/18 13:42 Baso # (Auto) 0.1 X10^3/uL (0.0-0.1) 07/01/18 13:42 Absolute Nucleated RBC 0.1 /100WBC 07/01/18 13:42 INR Target Range - 07/01/18 13:42 INR 2.34 (0.8-1.3) H 07/01/18 13:42 APTT 49.0 SECONDS (22.9-36.5) H 07/01/18 13:42 PTT Comment - 07/01/18 13:42 Sodium 135 mmol/L (136-145) L 07/01/18 13:42 Corrected Sodium TNP 07/01/18 13:42 Potassium 5.6 mmol/L (3.5-5.1) H 07/01/18 13:42 Chloride 101 mmol/L (98-107) 07/01/18 13:42 Carbon Dioxide 24.4 mmol/L (21-32) 07/01/18 13:42 BUN 17 mg/dL (7-18) 07/01/18 13:42 Creatinine 1.06 mg/dL (0.70-1.30) 07/01/18 13:42 Est GFR (MDRD) Af Amer > 60 (>60) 07/01/18 13:42 Est GFR (MDRD) Non-Af > 60 (>60) 07/01/18 13:42 Glucose 99 mg/dL (65-99) 07/01/18 13:42 Calcium 8.7 mg/dL (8.5-10.1) 07/01/18 13:42 Corrected Calcium 9.3 mg/dL (8.5-10.1) 07/01/18 13:42 Magnesium 1.5 mg/dL (1.7-2.9) L 07/01/18 13:42 Total Bilirubin 0.90 mg/dL (0.2-1.0) 07/01/18 13:42 AST 19 Units/L (15-37) 07/01/18 13:42 ALT 20 Units/L (12-78) 07/01/18 13:42 Alkaline Phosphatase 143 Units/L (46-116) H 07/01/18 13:42 Creatine Kinase 44 Units/L (39-308) 07/01/18 13:42 CK-MB (CK-2) 1.1 ng/mL (0-4.0) 07/01/18 13:42 CK/CKMB % Calc 2.5 % (<4) 07/01/18 13:42 Troponin I 0.03 ng/mL (0-1.5) 07/01/18 13:42 Total Protein 7.3 g/dL (6.4-8.2) 07/01/18 13:42 Albumin 3.2 g/dL (3.4-5.0) L 07/01/18 13:42 Globulin 4.1 g/dL (2.5-4.5) 07/01/18 13:42 Albumin/Globulin Ratio 0.8 Ratio (1.1-2.1) L 07/01/18 13:42 TSH 3rd Generation 2.913 uIU/mL (0.358-3.74) 07/01/18 13:42 Other Results Comments: CT Brain: No acute intracranial abnormality, Old left MCA, CVA. Chest: Borderline cardiomegaly without evidence of failure. Interval increase in the size of the right pleural effusion. It is now small in size. ADDITIONAL NOTES Additional Notes Additional Notes: Patient admitted for further evaluation and treatment per Dr. Love
--- NOTE | 2018-07-01 14:02 | CT ---
HISTORY: Altered mental status Study: CT head without contrast Comparison: 06/13/2014 report Technique: Axial noncontrast images with coronal and sagittal reformats. Dose reduction procedures were used with mA/kv adjusted for body size. Findings: The ventricles are normal in size shape and position. Age-related cortical atrophy is present. There is a large area of decreased attenuation in the distribution of the left middle cerebral artery likely due to a remote CVA. There are no other areas of abnormal attenuation to suggest other remote CVAs, recent CVA, hemorrhage, mass lesion, or extra-axial fluid collection. The visualized sinuses are clear. The calvarium is intact. 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
[2018-07-01 14:08] LABS: BLOOD UREA NITROGEN 17 mg/dL (7-18); CALCIUM 8.7 mg/dL (8.5-10.1); CARBON DIOXIDE 24.4 mmol/L (21-32); CHLORIDE 101 mmol/L (98-107); CREATININE 1.06 mg/dL (0.70-1.30); SODIUM 135 mmol/L (136-145); TROPONIN I 0.03 ng/mL (0-1.5); eGFR NON BLACK RACES > 60 (>60)
[2018-07-01 14:09] LABS: BASOPHILS # (AUTO) 0.1 X10^3/uL (0.0-0.1); BASOPHILS % (AUTO) 1.3 % (0.2-1.0); EOSINOPHILS # (AUTO) 0.1 x10^3/uL (0.0-0.2); EOSINOPHILS % (AUTO) 2.1 % (0.9-2.9); HEMATOCRIT 37.9 % (42.0-54.0); HEMOGLOBIN 13.3 g/dL (13.5-18.0); LYMPHOCYTES # (AUTO) 1.2 X10^3/uL (1.3-2.9); MEAN CORPUSCULAR HEMOGLOBIN 33.5 pg (27.0-34.0); MEAN CORPUSCULAR VOLUME 95.6 fL (80.0-100.0); MEAN PLATELET VOLUME 8.8 fL (7.4-11.0); MONOCYTES # (AUTO) 0.8 x10^3/uL (0.3-0.8); MONOCYTES % (AUTO) 14.2 % (0.0-13.0); NEUTROPHILS # (AUTO) 3.3 x10^3/uL (2.2-4.8); NEUTROPHILS % (AUTO) 60.4 % (42.0-75.0); PLATELET COUNT 163 X10^3/uL (150.0-450.0); RED BLOOD COUNT 3.96 X10^6/uL (4.7-6.0); RED CELL DISTRIBUTION WIDTH 15.4 % (11.6-16.5); WHITE BLOOD COUNT 5.5 X10^3/uL (3.6-10.0)
[2018-07-01 14:13] LABS: ALANINE AMINOTRANSFERASE 20 Units/L (12-78); ALBUMIN 3.2 g/dL (3.4-5.0); ALKALINE PHOSPHATASE 143 Units/L (46-116); ASPARTATE AMINO TRANSFERASE 19 Units/L (15-37); CKMB % 2.5 % (<4); COR CA(FOR HYPOALB) 9.3 mg/dL (8.5-10.1); CREATINE KINASE 44 Units/L (39-308); CREATINE KINASE MB 1.1 ng/mL (0-4.0); MAGNESIUM 1.5 mg/dL (1.7-2.9); TOTAL PROTEIN 7.3 g/dL (6.4-8.2); TSH (3RD GENERATION) 2.913 uIU/mL (0.358-3.74)
--- NOTE | 2018-07-01 14:18 | RAD ---
HISTORY: Altered mental status. Study: AP portable chest Comparison: 05/02/2018 Findings: Mild chronic interstitial scarring is noted, unchanged. Interval increase in the size of the right pleural effusion is noted. It is now small in size. Borderline cardiomegaly is present. Patient is status post median sternotomy. An electronic cardiac device is present on the left and its leads appear to be in appropriate position. No acute bony abnormalities are identified. IMPRESSION: 1. Borderline cardiomegaly without evidence of failure. 2. Interval increase in the size of the right pleural effusion. It is now small in size. Reported By:
[2018-07-01] MEDS ORDERED: CALCIUM GLUCONATE 10% IV ONE ×2 (15:05→15:16)
[2018-07-01] MEDS ORDERED: D50W ABBOJECT SYR IV ONE (15:05)
[2018-07-01] MEDS ORDERED: D5 LR 1000 ML 1,000 ML with SODIUM BICARBONATE 8.4% INJ ADULT 100 ML IV ONE ×2 (15:05)
[2018-07-01] MEDS ORDERED: KAYEXALATE SUSP PO ONE (15:05)
[2018-07-01] MEDS ORDERED: PROVENTIL NEB TX 0.083% 2.5MG/ 3ML ONE (15:07)
[2018-07-01] MEDS ORDERED: PROVENTIL NEB TX 0.083% 2.5MG/ 3ML NEB ONE (15:10)
[2018-07-01] MEDS ORDERED: SODIUM BICARBONATE 8.4% INJ ADULT IVP ONE (15:12)
[2018-07-01] MEDS ORDERED: HumuLIN R IV ONE (15:14)
[2018-07-01] MEDS ORDERED: SODIUM BICARBONATE 8.4% INJ ADULT ONE (15:16)
[2018-07-01] MEDS ORDERED: D50W ABBOJECT SYR ONE (15:16)
[2018-07-01] MEDS ORDERED: LASIX IVP ONE (15:16)
[2018-07-01] MEDS ORDERED: NS 1000 ML 1,000 ML ONE (17:48)
[2018-07-01] MEDS ORDERED: NS 1000 ML 1,000 ML IV ONE (17:52)
[2018-07-01] MEDS ORDERED: MILK OF MAGNESIA PO PRN (17:58)
[2018-07-01] MEDS ORDERED: TYLENOL SUPP 650 MG PR PRN (17:58)
[2018-07-01] MEDS ORDERED: ZOFRAN INJ 4 MG VIAL IVP PRN (17:58)
[2018-07-01] MEDS ORDERED: PHENERGAN INJ 25 MG IM PRN (17:58)
[2018-07-01] MEDS ORDERED: MORPHINE SULFATE INJ 2 MG INJ IVP PRN (17:58)
[2018-07-01] MEDS ORDERED: ULTRAM PO PRN (17:58)
[2018-07-01] MEDS ORDERED: ROBITUSSIN DM PO PRN (17:58)
[2018-07-01 20:02] VITALS: BMI 19.3
[2018-07-01] MEDS: PEPCID 20 MG IV PREMIX* 20 MG/50 ML BAG IV SCH (20:22)
[2018-07-01] MEDS: LIPITOR TAB 40 MG PO SCH (20:22)
[2018-07-01] MEDS: COREG TAB 6.25 MG PO SCH ×2 (20:26→22:06)
[2018-07-01] MEDS: SNACK - Diabetic Appropriate PO SCH (20:26)
[2018-07-01] MEDS ORDERED: COUMADIN TAB 5 MG PO SCH (21:00)
[2018-07-02 05:33] LABS: BASOPHILS # (AUTO) 0.1 X10^3/uL (0.0-0.1); BASOPHILS % (AUTO) 1.3 % (0.2-1.0); EOSINOPHILS # (AUTO) 0.1 x10^3/uL (0.0-0.2); EOSINOPHILS % (AUTO) 2.5 % (0.9-2.9); HEMATOCRIT 34.9 % (42.0-54.0); HEMOGLOBIN 12.3 g/dL (13.5-18.0); LYMPHOCYTES % (AUTO) 20.1 % (21.0-51.0); MEAN CORPUSCULAR HGB CONC 35.2 g/dL (33.0-35.0); MEAN CORPUSCULAR VOLUME 93.8 fL (80.0-100.0); MONOCYTES # (AUTO) 0.6 x10^3/uL (0.3-0.8); MONOCYTES % (AUTO) 12.7 % (0.0-13.0); NEUTROPHILS # (AUTO) 3.1 x10^3/uL (2.2-4.8); NEUTROPHILS % (AUTO) 63.4 % (42.0-75.0); PLATELET COUNT 157 X10^3/uL (150.0-450.0); RED BLOOD COUNT 3.73 X10^6/uL (4.7-6.0); RED CELL DISTRIBUTION WIDTH 15.8 % (11.6-16.5)
[2018-07-02 05:44] LABS: ALBUMIN 2.5 g/dL (3.4-5.0); ALKALINE PHOSPHATASE 122 Units/L (46-116); ASPARTATE AMINO TRANSFERASE 23 Units/L (15-37); BLOOD UREA NITROGEN 19 mg/dL (7-18); CARBON DIOXIDE 24.7 mmol/L (21-32); CHLORIDE 103 mmol/L (98-107); CHOL/HDL RATIO 3.3 (0.0-5.0); CHOLESTEROL 147 mg/dL (0-200); CKMB % 0.7 % (<4); COR CA(FOR HYPOALB) 9.2 mg/dL (8.5-10.1); COR NA(FOR HYPERGLY) 140 mmol/L (136-145); CREATINE KINASE 337 Units/L (39-308); CREATINE KINASE MB 2.4 ng/mL (0-4.0); CREATININE 0.92 mg/dL (0.70-1.30); HDL CHOLESTEROL 44 mg/dL (40-60); SODIUM 139 mmol/L (136-145); TOTAL PROTEIN 6.1 g/dL (6.4-8.2); TRIGLYCERIDES 79 mg/dL (0-150); TROPONIN I 0.07 ng/mL (0-1.5); eGFR NON BLACK RACES > 60 (>60)
[2018-07-02 06:16] LABS: ALANINE AMINOTRANSFERASE 17 Units/L (12-78)
[2018-07-02] MEDS ORDERED: POTASSIUM CHL 60 MEQ/NS 0.45% 500 ML IV PRN (06:42)
[2018-07-02] MEDS ORDERED: K-RIDER 10 MEQ/NS 100 ML 10 MEQ/100 ML BAG IV PRN (06:42)
[2018-07-02] MEDS ORDERED: POTASSIUM CHL 40 MEQ/NS 0.45% 500 ML IV PRN (06:42)
[2018-07-02] MEDS ORDERED: MICRO K EXTEN CAP 10 MEQ PO PRN (06:42)
[2018-07-02] MEDS ORDERED: KLOR-CON PO PRN (06:42)
[2018-07-02] MEDS ORDERED: POTASSIUM CHLORIDE LIQ 20 MEQ UDC PO PRN (06:42)
[2018-07-02] MEDS: K-DUR TAB 20 MEQ PO PRN ×2 (06:51→09:47)
[2018-07-02] MEDS: MAGNESIUM SULFATE 1 GRAM/100 mL PREMIX 1 GM/100 ML BAG IV PRN ×4 (07:29→11:23)
[2018-07-02] MEDS: COREG TAB 6.25 MG PO SCH ×2 (08:15→20:42)
[2018-07-02] MEDS: ZESTRIL TAB 5 MG PO SCH (08:15)
[2018-07-02] MEDS: PEPCID 20 MG IV PREMIX* 20 MG/50 ML BAG IV SCH ×2 (08:33→20:42)
[2018-07-02] MEDS ORDERED: PLAVIX PO SCH (09:00)
[2018-07-02] MEDS ORDERED: LASIX IVP SCH (09:00)
[2018-07-02 10:02] LABS: CKMB % 0.7 % (<4); CREATINE KINASE MB 2.5 ng/mL (0-4.0); TROPONIN I 0.07 ng/mL (0-1.5)
[2018-07-02 14:15] LABS: CKMB % 0.6 % (<4); TROPONIN I 0.06 ng/mL (0-1.5)
[2018-07-02] MEDS: LIPITOR TAB 40 MG PO SCH (20:43)
[2018-07-02] MEDS: SNACK - Diabetic Appropriate PO SCH (20:43)
[2018-07-03 06:06] LABS: BASOPHILS # (AUTO) 0.1 X10^3/uL (0.0-0.1); BASOPHILS % (AUTO) 1.7 % (0.2-1.0); EOSINOPHILS # (AUTO) 0.1 x10^3/uL (0.0-0.2); EOSINOPHILS % (AUTO) 2.8 % (0.9-2.9); HEMATOCRIT 32.6 % (42.0-54.0); HEMOGLOBIN 11.4 g/dL (13.5-18.0); LYMPHOCYTES % (AUTO) 25.2 % (21.0-51.0); MEAN CORPUSCULAR HEMOGLOBIN 33.2 pg (27.0-34.0); MEAN CORPUSCULAR HGB CONC 35.1 g/dL (33.0-35.0); MEAN CORPUSCULAR VOLUME 94.7 fL (80.0-100.0); MEAN PLATELET VOLUME 8.8 fL (7.4-11.0); MONOCYTES # (AUTO) 0.6 x10^3/uL (0.3-0.8); MONOCYTES % (AUTO) 14.6 % (0.0-13.0); NEUTROPHILS # (AUTO) 2.2 x10^3/uL (2.2-4.8); NEUTROPHILS % (AUTO) 55.7 % (42.0-75.0); PLATELET COUNT 146 X10^3/uL (150.0-450.0); RED BLOOD COUNT 3.44 X10^6/uL (4.7-6.0)
[2018-07-03 06:28] LABS: ALANINE AMINOTRANSFERASE 17 Units/L (12-78); ALBUMIN 2.6 g/dL (3.4-5.0); ALKALINE PHOSPHATASE 112 Units/L (46-116); ASPARTATE AMINO TRANSFERASE 30 Units/L (15-37); BLOOD UREA NITROGEN 20 mg/dL (7-18); CARBON DIOXIDE 24.7 mmol/L (21-32); CHLORIDE 106 mmol/L (98-107); COR CA(FOR HYPOALB) 9.1 mg/dL (8.5-10.1); CREATININE 1.13 mg/dL (0.70-1.30); SODIUM 139 mmol/L (136-145); TOTAL PROTEIN 6.2 g/dL (6.4-8.2); eGFR NON BLACK RACES > 60 (>60)
--- NOTE | 2018-07-03 08:59 | RAD ---
History: Shortness of breath Study: Portable AP chest Comparison: July 01 Findings: The heart size is improved status post CABG with unchanged intact pacemaker wire leads. There is near resolution of a small right pleural effusion. There is mild interstitial edema. There are few Lanny B-lines. Impression: 1. Mild interstitial edema 2. Decreased right small pleural effusion Reported By:
[2018-07-03] MEDS: COREG TAB 6.25 MG PO SCH (09:01)
[2018-07-03] MEDS: ZESTRIL TAB 5 MG PO SCH (09:01)
[2018-07-03] MEDS: PEPCID 20 MG IV PREMIX* 20 MG/50 ML BAG IV SCH (09:01)
[2018-07-03 09:04] LABS: CKMB % 0.3 % (<4); CREATINE KINASE MB 1.6 ng/mL (0-4.0); TROPONIN I 0.06 ng/mL (0-1.5)
--- NOTE | 2018-07-03 10:29 | DR.H&P ---
H&P - History & Physical for Day of: H&P Date: 07/01/18 - Chief Complaint Chief Complaint: CONFUSION PER FAMILY, GENERALIZED WEAKNESS - History of Present Illness History of Present Illness: 68 WM ER ADMISSION AFTER FAMILY REPORTS PT IS CONFUS ED, GENERALIZED WEAKNESS. PT HAS PMH OF OLD CVA, HTN, CAD, CHF, COPD. PT IS UNDER THE CARE OF DR NOGUEIRA AND DR [facility]. PT RECENTLY DX WITH PE AND CURRENTLY ON COUMADIN. PT WAS TREATED AT [facility] IN [place]. PT DENIES CHEST PAIN ON ADMISSION. CT HEAD IN ER WITH OUT ACUTE CHANGES. PT ADMITTED FOR SERIAL CE AND ASSESSMENT OF AMS. - Past Medical History Past Medical History: CA, Hypertension, Dyslipidemia, Anemia, CVA, COPD, GERD - Past Surgical History Surgical History: Angioplasty/Stents, CABG/Valve Surgery - Family History Family Medical History: Cancer, Coronary Artery Disease - Social History Does patient currently use any type of tobacco product: Yes Have you used tobacco products in the last 12 months: Yes Type of Tobacco Use: Cigarettes Does any household member use tobacco: No Alcohol Use: None Drug Use: None - Medications Home Medications: No Known Drug Allergies Allergy (Verified 05/02/18 21:49) CONTINUE taking the following medications atorvastatin 40 mg PO HS 07/01/18 [History] carvedilol 6.25 mg PO BID 07/01/18 [History] lisinopril 2.5 mg PO DAILY 07/01/18 [History] warfarin 5 mg PO HS 07/01/18 [History] - Review of Systems Constitutional: Weakness Eyes: No Symptoms Reported Respiratory: Shortness of Breath Cardiovascular: denies: Chest Pain, Edema Gastrointestinal: No Symptoms Reported Genitourinary: No Symptoms Reported Musculoskeletal: Back Pain Skin: No Symptoms Reported Neurological: Weakness, Confusion - Physical Exam Vital Signs: Temperature 98.3 F Pulse Rate [Apical] 91 Pulse Rate 78 Respiratory Rate 22 Blood Pressure [Left Calf] 152/63 Blood Pressure [Left Arm] 124/58 Blood Pressure [Right Arm] 161/70 Blood Pressure 105/65 O2 Sat by Pulse Oximetry 98 Oriented: Person Eyes: Normal Ear: Normal Nose: Normal Throat: Normal Respiratory: RLL Diminished, LLL Diminished Cardiovascular: Normal, Other (PACER, DEFIBRILLATOR PRESENT). negative: Edema Tenderness: Normal Skin: Normal Musculoskeletal: Normal Psychiatric: Anxiety Affect: Anxious Speech Pattern: Clear, Appropriate - Assessment/Plan (1) Altered mental status Status: Acute Plan: ADMIT ICU, RESP THERAPY, SUPPLEMENTAL O2. I & OS, SERIAL CE AND EKG'S. CXR ON ADMISSION, CT HEAD ON ADMISSION. PT/INR, VERIFY HOME MEDICATION (2) Hypokalemia Status: Acute (3) Weakness Status: Acute (4) Congestive heart failure Qualifiers: Heart failure type: unspecified Status: Chronic (5) CHF (congestive heart failure) Qualifiers: Heart failure type: combined systolic and diastolic Heart failure chronicity: acute on chronic Qualified Code(s): I50.43 - Acute on chronic combined systolic (congestive) and diastolic (congestive) heart failure Status: Chronic (6) COPD (chronic obstructive pulmonary disease) Qualifiers: COPD type: unspecified COPD Qualified Code(s): J44.9 - Chronic obstructive pulmonary disease, unspecified Status: Chronic - Allergies Allergies/Adverse Reactions: Allergies Allergy/AdvReac Type Severity Reaction Status Date / Time No Known Drug Allergies Allergy Verified 05/02/18 21:49
[2018-07-03 12:34] VITALS: BP 137/63
== END 2018-07-03 13:05 | disposition home or self-care (01) ==
LOC: ER 13:14 → ICU 13:14
PROVIDERS: ADMIT Emergency Medicine; ATTEND Internal Medicine
DX: J44.9 Chronic obstructive pulmonary disease, unspecified; R94.31 Abnormal electrocardiogram [ECG] [EKG]; I25.2 Old myocardial infarction; J90 Pleural effusion, not elsewhere classified; E86.0 Dehydration; R41.82 Altered mental status, unspecified; Z79.01 Long term (current) use of anticoagulants; E78.2 Mixed hyperlipidemia; K21.9 Gastro-esophageal reflux disease without esophagitis; I50.43 Acute on chronic combined systolic (congestive) and diastolic (congestive) heart failure; R79.1 Abnormal coagulation profile; R53.1 Weakness; E87.6 Hypokalemia
CPT/HCPCS: 36415; 70450; 71010; 71045; 80053; 80061; 82550; 82553; 83735; 84132; 84443; 84484; 85025; 85610; 85730; 93005; 93010; 94640; 96365; 96374; 96375; 99284; A4222; S0028; G0378; J0610; J1940; J3475; J3490; J7030; J7613